=== PATIENT | male | born 1990 | race Caucasian/White ===

== ENCOUNTER 2019-04-26 21:28 | Emergency (ER) | payer BC, SELFPAY ==
[~2019-04-26] VITALS: Ht 180.3 cm; Wt 57.0 kg
[2019-04-26 21:31] VITALS: BP 157/84
--- NOTE | 2019-04-26 22:48 | NUR ---
PT TO CT
[2019-04-26] MEDS ORDERED: LIDOCAINE 1%, 10ML INFIL ONE (23:00)
[2019-04-26] MEDS ORDERED: LIDOCAINE-MPF 1%, 2ML ONE (23:02)
[2019-04-27] MEDS ORDERED: ACETAMINOPHEN 500 MG TABLET ONE (00:26)
[2019-04-27] MEDS ORDERED: ACETAMINOPHEN 500 MG TABLET PO ONE (00:30)
== END 2019-04-27 00:33 | disposition home or self-care (01) ==
LOC: ED 04-27 00:20
DX: S01.01XA Laceration without foreign body of scalp, initial encounter (principal); G31.2 Degeneration of nervous system due to alcohol; F17.200 Nicotine dependence, unspecified, uncomplicated; W19.XXXA Unspecified fall, initial encounter; Y93.89 Activity, other specified; Y92.009 Unspecified place in unspecified non-institutional (private) residence as the place of occurrence of the external cause; Y99.8 Other external cause status
CPT/HCPCS: 12032; 70450; 93005; 99284